=== PATIENT | female | born 1960 | race Caucasian/White ===

== ENCOUNTER 2018-12-04 19:41 | Emergency (ER) | payer SELFPAY ==
[~2018-12-04] VITALS: Ht 162.6 cm; Wt 69.0 kg
[2018-12-04 19:48] VITALS: BP 142/76
== END 2018-12-04 23:00 | disposition left against medical advice (07) ==
LOC: ER 19:41
DX: R07.9 Chest pain, unspecified (principal); Z53.21 Procedure and treatment not carried out due to patient leaving prior to being seen by health care provider